=== PATIENT | female | born 1970 | race Native Hawaiian/Other Pacific Islander ===

== ENCOUNTER → 2016-05-27 17:09 | Outpatient (CLI) | payer OTHER | END | disposition short-term general hospital (02) | LOC: AMB 17:09 | DX: R41.82 Altered mental status, unspecified (principal); R00.0 Tachycardia, unspecified | CPT/HCPCS: A0425; A0427 ==

== ENCOUNTER 2016-05-27 17:19 | Emergency (ER) | payer OTHER ==
[~2016-05-27] VITALS: Ht 157.5 cm; Wt 90.7 kg
[2016-05-27 18:01] LABS: PLATELET COUNT 308 K/uL (152-353)
[2016-05-27 18:12] LABS: POTASSIUM 3.9 mmol/L (3.6-5.2); SODIUM 132 mmol/L (136-145)
[2016-05-27 21:03] VITALS: BP 134/62; TEMP 97.7
== END 2016-05-27 21:04 | disposition home or self-care (01) ==
LOC: ED 17:19 → EDBD 17:19 → ED 21:04
PROVIDERS: Emergency Medicine
DX: F10.129 Alcohol abuse with intoxication, unspecified (principal); F11.90 Opioid use, unspecified, uncomplicated; V53.0XXA Driver of pick-up truck or van injured in collision with car, pick-up truck or van in nontraffic accident, initial encounter; Y92.481 Parking lot as the place of occurrence of the external cause
CPT/HCPCS: 36415; 51702; 80053; 80307; 80320; 80329; 81000; 82550; 83605; 83880; 84484; 85027; 93005; 96365; 99284; G0479